=== PATIENT | female | born 1935 | race Caucasian/White ===

== ENCOUNTER 2016-03-05 18:34 | Emergency (ER) | payer MEDICARE, OTHER ==
[2016-03-05 19:00] VITALS: TEMP 98.4; BMI 23.9
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
[2016-03-05 21:01] VITALS: BP 126/74; PULSE 64
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
== END 2016-03-05 21:35 | disposition home or self-care (01) ==
LOC: ED 18:34
DX: S01.01XA Laceration without foreign body of scalp, initial encounter (principal); G95.9 Disease of spinal cord, unspecified; V49.3XXA Car occupant (driver) (passenger) injured in unspecified nontraffic accident, initial encounter; Y93.89 Activity, other specified
CPT/HCPCS: 12001; 70450; 72125; 99283; J3490